=== PATIENT | female | born 1990 | race African-American/Black ===

== ENCOUNTER 2016-08-29 22:11 | Emergency (ER) ==
[2016-08-29 22:22] VITALS: BP 104/70; TEMP 100
[2016-08-29 22:47] LABS: BILIRUBIN,URINE Negative (NEGATIVE); KETONES,URINE Negative (NEGATIVE); LEUKOCYTE ESTERASE ,URINE Trace (NEGATIVE); NITRITE,URINE Negative (NEGATIVE); PH,URINE 7.5 (5-9); PROTEIN,URINE Negative (NEGATIVE); URINE PREGNANCY INTERNAL QC INTERNAL QC VALID; URINE, BLOOD Trace-intact (NEGATIVE)
[2016-08-29 22:50] LABS: ADD URINE MICROSCOPIC YES
--- NOTE | 2016-08-29 22:54 | ED.PDOC ---
General ED Provider: Dr. JANY BUTLER Chief Complaint: Urinary Problem Stated Complaint: Frequent urination with small amounts of urine. Says has strong odor. Also has white vaginal discharge. No itching at present. Used cream 1 week ago. Admits to sex without protection with someone who has multiple partners. Time Seen by Physician: 22:48 Mode of Arrival: Walk-In Information Source: Patient Nursing and Triage Documentation Reviewed and Agree: Yes Complaint Exam - Complaint/Exam Patient Complains of: Reports: Vaginal discharge Onset/Duration: 1 week Symptoms Are: Still present Timing: Constant Initial Severity: Mild Current Severity: Mild Location of Pain: Reports: Suprapubic Character: Reports: Dull, Dark urine Aggravating: Reports: None Alleviating: Reports: None Associated Signs and Symptoms: Denies: Diaphoresis, Back pain, Fever, Hematuria , Dysuria, Constipation, Blood in stool, Rectal pain, Appetite change, Nausea, Vomiting, Decreased urine output, Increased urine frequency, Increased thirst, Decreased activity, Lethargy, Abdominal Pain, Bubble bath use, Vaginal bleeding , Vaginal discharge, Genital swelling, Genital blisters, Retained foreign body Ectopic Risk Factors: Reports: None Ovarian Torsion Risk Factors: Reports: None RH Status: Unknown Abdominal Findings: Present: None Vaginal Exam: Present: Discharge Cervical Exam: Present: Discharge, Tenderness Differential Diagnoses: Cervicitis, Endometriosis, STD, UTI Review of Systems - Review Of Systems Constitutional: Reports: No symptoms Eyes: Reports: No symptoms Ears, Nose, Mouth, Throat: Reports: No symptoms Respiratory: Reports: No symptoms Cardiac: Reports: No symptoms GI: Reports: No symptoms : Reports: Discharge, Pain Musculoskeletal: Reports: No symptoms Skin: Reports: No symptoms Neurological: Reports: Anxiety Endocrine: Reports: No symptoms Hematologic/Lymphatic: Reports: No symptoms All Other Systems: Reviewed and Negative Past Medical History - Past Medical History Endocrine: Reports: None Cardiovascular: Reports: None Respiratory: Reports: None Hematological: Reports: None Gastrointestinal: Reports: None Genitourinary: Reports: None Neuro/Psych: Reports: None Musculoskeletal: Reports: None Cancer: Reports: None Last Menstrual Period: 07/27/16 - Surgical History General Surgical History: Reports: Other (steralization procedure not sure of the name ) - Family History Family History: Reports: None - Social History Smoking Status: Never smoker Hx Substance Use: No Alcohol Screening: Occasionally - Immunizations Tetanus Shot up to Date: Yes Physical Exam - Physical Exam Appearance: Ill-appearing Ill-appearing: Mild Pain Distress: Mild Eyes: VASQUEZ, EOMI, Conjunctiva clear ENT: Ears normal, Nose normal, Oropharynx normal Neck: Supple Respiratory: Airway patent, Breath sounds clear, Breath sounds equal, Respirations nonlabored Cardiovascular: RRR, Pulses normal, No rub, No murmur GI/: Soft, Tender (suprapubic area ) Musculoskeletal: Normal strength, ROM intact, No edema, No calf tenderness Skin: Warm, Dry, Normal color Neurological: Sensation intact, Motor intact, Reflexes intact, Cranial nerves intact, Alert, Oriented Psychiatric: Anxious Critical Care Note - Critical Care Note Total Time (mins): 0 Course - Course Orders, Labs, Meds: Lab Review 08/29/16 08/29/16 08/29/16 00:00 22:26 23:30 Urine Color Yellow Urine Clarity Clear Urine pH 7.5 Ur Specific [place] 1.020 Urine Protein Negative Urine Glucose (UA) Negative Urine Ketones Negative Urine Blood Trace-intact Urine Nitrite Negative Urine Bilirubin Negative Urine Urobilinogen 0.2 Ur Leukocyte Esterase Trace Urine Microscopic RBC 2-5 Ur Squamous Epith Cells 0-2 Urine Test Negative HIV 1&2 Antibody Screen Negative HIV P24 Antigen Negative CHUY Preparation No fungal elements Orders Category Date Time Status CHLAMYDIA/GC AMPLIFICATION Stat LAB 08/29/16 00:00 Received GENITAL CULTURE Stat LAB 08/29/16 00:00 Received HIV RAPID TEST [RAPID HIV SCREEN] Stat LAB 08/29/16 23:30 Completed CHUY PREP Stat LAB 08/29/16 00:00 Completed UA [URINALYSIS C & S IF INDICATED] Stat LAB 08/29/16 22:26 Completed URINE Stat LAB 08/29/16 22:26 Completed Azithromycin [Zithromax] MEDS 08/30/16 00:20 Discontinued 1,000 mg PO ONCE STA Ceftriaxone Sodium [Rocephin] MEDS 08/30/16 00:20 Discontinued 250 mg IM ONCE STA Lidocaine HCl/Pf [Lidocaine 1 % Amp 5 ml (Sutures)] MEDS 08/30/16 00:20 Discontinued 0.9 ml IM ONCE STA Medications Discontinued Medications Generic Name Dose Route Start Last Admin Trade Name Freq PRN Reason Stop Dose Admin Azithromycin 1,000 mg 08/30/16 00:20 08/30/16 00:29 Zithromax PO 08/30/16 00:21 1,000 mg ONCE STA Administration Ceftriaxone Sodium 250 mg 08/30/16 00:20 08/30/16 00:32 Rocephin IM 08/30/16 00:21 250 mg ONCE STA Administration Lidocaine HCl 0.9 ml 08/30/16 00:20 08/30/16 00:30 Lidocaine 1 % Amp 5 Ml (Sutures) IM 08/30/16 00:21 0.9 ml ONCE STA Administration Vital Signs: Temp Pulse Resp BP Pulse Ox 08/29/16 22:13 100 F H 78 20 104/70 99 Departure - Departure Time of Disposition: 00:49 Disposition: HOME SELF-CARE Discharge Problem: Pelvic pain, Vaginal discharge Instructions: Safe Sex (ED), Vaginal Discharge (ED), Pelvic Inflammatory Disease (ED) Condition: Good Pt referred to PMD for follow-up: Yes Additional Instructions: Practice only safe sex Follow up with PCP in 3 day Prescriptions: Tramadol HCl [Ultram] 50 mg PO Q6H PRN #10 tablet PRN Reason: Severe Pain Allergies/Adverse Reactions: Allergies No Known Allergies Allergy (Unverified 08/29/16 22:19) Home Medications: Ambulatory Orders Tramadol HCl [Ultram] 50 mg PO Q6H PRN #10 tablet 08/30/16 Disposition Discussed With: Patient
[2016-08-30 00:02] LABS: HIV INTERNAL QC INTERNAL QC VALID; HIV-1 p24 ANTIGEN SCREEN NEGATIVE (NEGATIVE); HIV-1/2 ANTIBODY SCREEN NEGATIVE (NEGATIVE)
[2016-08-30] MEDS ORDERED: LIDOCAINE 1 % AMP 5 ML (SUTURES) IM STA (00:20)
[2016-08-30] MEDS ORDERED: ZITHROMAX PO STA (00:20)
[2016-08-30] MEDS ORDERED: ROCEPHIN IM STA (00:20)
[2016-09-03 08:36] LABS: GENITAL CULTURE Final report (.)
== END 2016-08-30 01:00 | disposition home or self-care (01) ==
LOC: ED 22:11
DX: N89.8 Other specified noninflammatory disorders of vagina (principal); R10.2 Pelvic and perineal pain
CPT/HCPCS: 36415; 81001; 81025; 87070; 87210; 87800; 96372; 99283